=== PATIENT | female | born 1965 | race Caucasian/White ===

== ENCOUNTER 2018-12-23 17:01 | Observation (INO) | payer OTHER ==
[2018-12-23] MEDS ORDERED: ONDANSETRON 4 MG/2 ML VIAL IVP ONE (17:36)
[2018-12-23] MEDS ORDERED: KETOROLAC 30 MG/1 ML SDV IVP ONE (17:36)
--- NOTE | 2018-12-23 17:37 | EDPHY ---
HPI/HX/ROS/PE/MDM Narrative: CHIEF COMPLAINT: HPI: This patient is a 53 year old female who is generally healthy, past medical history includes several surgical procedures (see PMH below). She arrives today with her complaining of abdominal pain. Yesterday morning, she had several episodes of severe diarrhea with associated lower abdominal cramping which progressed throughout day. Around 5pm, the discomfort moved towards her right side. Today, she is quite tender in the RLQ, rates the severity of her pain at 6/10. She endorses lack of appetite. Her last PO intake was this morning around 10am. She endorses some mild dysuria. No fever, chest pain, difficulty breathing, or other associated symptoms. REVIEW OF SYSTEMS: A comprehensive 10 system review of systems is otherwise negative aside from elements mentioned in the history of present illness and medical decision making. PMH: . Hysterectomy. Oophorectomy. Pectus excavatum with surgical interventions 6-7 years ago. SOCIAL HISTORY: Friend at bedside. Employed. Does not abuse tobacco, drugs, or alcohol . PHYSICAL EXAM: General:Patient is alert, in no acute distress. ENT:Eyes are normal to inspection. ENT inspection normal. Neck: Normal inspection. Full range of motion. Respiratory:No respiratory distress. Breath sounds normal bilaterally. Cardiovascular: Regular rate and rhythm. Strong peripheral pulses. Normal cap refill. Abdomen: Severe RLQ tenderness over McBurney's point. Back: Normal to inspection. No tenderness to palpation. Skin: Normal color. No rash. Warm and dry. Extremities: Normal appearance. Full range of motion. Neuro: Oriented x3. Normal motor function. Normal sensory function. ED Course: 53 y/o female presents with severe right lower quadrant tenderness over McBurney 's point with associated nausea and lack of appetite. Patient declines narcotic pain medications. She is amenable to Toradol. Plan to administer 30mg IV Toradol , 4mg IV Zofran, and 1L IV NS for symptom relief. Plan for labs including CBC, chemistries, UA. Discussed imaging studies including US vs CT abdomen/pelvis. Patient would like to proceed with CT to rule out acute processes including appendicitis, diverticulitis, kidney stone. The patient has an allergy to iodine as well as shellfish. She notes she has had IV contrast in the past with pre-medication. Reviewed laboratory studies. WBC elevated at 10,000. 18:[address] Gonzalez, general surgeon. He will consult. 18:[address] Gallo, radiologist. CT abdomen without contrast is negative for appendicitis. A CT with contrast is more specific for appendicitis , but patient has iodine allergy and we chose to forgo this test. Clinically, the patient remains very suspicious for appendicitis. Dr. Gonzalez to discuss options for treatment including observation vs. surgical intervention. 19:29 Reassessed patient. She prefers to go to the OR for appendectomy. Plan to administer 500mg IV Flagyl and 1g IV Rocephin. Dr. Gonzalez accepts admission for perioperative management. - Data Points Imaging Results: Imaging Impressions Abdomen/Pelvis CT 12/23/18 17:39 Impression: 1. Constipation. 2. No evidence of appendicitis, bowel obstruction, or diverticulitis. 3. No nephrolithiasis or hydronephrosis. Attention: This CT examination is specifically designed to evaluate patients who are clinically suspected of having acute obstructive uropathy. This examination does not use radiographic contrast, and as such, provides only a limited evaluation of the abdomen, pelvis and retroperitoneum. If there is further clinical suspicion for pathological conditions other than obstructive uropathy, a complete CT evaluation of the abdomen and pelvis utilizing intravenous, oral, and rectal contrast should be considered. Findings and recommendations discussed with Emergency Department physician, Phillip Morrow MD at 18:15hour, 12/23/2018. Final report concurs with initial preliminary interpretation. Imaging: Discussed imaging studies w/ call center manager Radiologist Laboratory Results: Laboratory Results 12/23/18 17:25 12/23/18 17:25 12/23/18 12/23/18 12/23/18 17:25 17:25 17:15 WBC 10.25 10^3/uL H 10^3/uL (3.80-9.50) RBC 4.52 10^6/uL 10^6/uL (4.18-5.33) Hgb 13.8 g/dL g/dL (12.6-16.3) Hct 42.3 % % (38.0-47.0) MCV 93.6 fL fL (81.5-99.8) MCH 30.5 pg pg (27.9-34.1) MCHC 32.6 g/dL g/dL (32.4-36.7) RDW 14.0 % % (11.5-15.2) Plt Count 239 10^3/uL 10^3/uL (150-400) MPV 9.8 fL fL (8.7-11.7) Neut % (Auto) 76.2 % H % (39.3-74.2) Lymph % (Auto) 14.2 % L % (15.0-45.0) [place] % (Auto) 7.9 % % (4.5-13.0) Eos % (Auto) 0.9 % % (0.6-7.6) Baso % (Auto) 0.5 % % (0.3-1.7) Nucleat RBC Rel Count 0.0 % % (0.0-0.2) Absolute Neuts (auto) 7.81 10^3/uL H 10^3/uL (1.70-6.50) Absolute Lymphs (auto) 1.46 10^3/uL 10^3/uL (1.00-3.00) Absolute Monos (auto) 0.81 10^3/uL H 10^3/uL (0.30-0.80) Absolute Eos (auto) 0.09 10^3/uL 10^3/uL (0.03-0.40) Absolute Basos (auto) 0.05 10^3/uL 10^3/uL (0.02-0.10) Absolute Nucleated RBC 0.00 10^3/uL 10^3/uL (0-0.01) Immature Gran % 0.3 % % (0.0-1.1) Immature Gran # 0.03 10^3/uL 10^3/uL (0.00-0.10) Sodium 138 mEq/L mEq/L (135-145) Potassium 3.6 mEq/L mEq/L (3.5-5.2) Chloride 102 mEq/L mEq/L (97-110) Carbon Dioxide 26 mEq/l mEq/l (22-31) Anion Gap 10 mEq/L mEq/L (6-14) BUN 13 mg/dL mg/dL (7-23) Creatinine 0.7 mg/dL mg/dL (0.6-1.0) Estimated GFR > 60 Glucose 96 mg/dL mg/dL (70-100) Calcium 9.3 mg/dL mg/dL (8.5-10.4) Urine Color PALE YELLOW Urine Appearance HAZY Urine pH 6.0 (5.0-7.5) Ur Specific [place] 1.006 (1.002-1.030) Urine Protein NEGATIVE (NEGATIVE) Urine Ketones NEGATIVE (NEGATIVE) Urine Blood 2+ H (NEGATIVE) Urine Nitrate NEGATIVE (NEGATIVE) Urine Bilirubin NEGATIVE (NEGATIVE) Urine Urobilinogen NEGATIVE EU EU (0.2-1.0) Ur Leukocyte Esterase 2+ H (NEGATIVE) Urine RBC 1-3 /hpf /hpf (0-3) Urine WBC 25-50 /hpf H /hpf (0-3) Ur Epithelial Cells TRACE /lpf /lpf (NONE-1+) Urine Bacteria 1+ /hpf H /hpf (NONE SEEN) Urine Mucus TRACE /lpf /lpf (NONE-1+) Urine Glucose NEGATIVE (NEGATIVE) Medications Given: Metronidazole/Sodium Chloride (Flagyl 500 Mg (Premix)) 100 mls @ 100 mls/hr IV EDNOW ONE PRN Reason: Protocol Stop: 12/23/18 20:13 Last Admin: 12/23/18 19:18 Dose: 100 mls Discontinued Medications Sodium Chloride (Ns) 1,000 mls @ 0 mls/hr IV ONCE ONE; Wide Open PRN Reason: Protocol Stop: 12/23/18 17:39 Last Admin: 12/23/18 17:42 Dose: 1,000 mls Ceftriaxone Sodium/Dextrose (Rocephin 1 Gm (Premix)) 50 mls @ 100 mls/hr IV EDNOW ONE PRN Reason: Protocol Stop: 12/23/18 19:43 Last Admin: 12/23/18 19:18 Dose: 50 mls Ketorolac Tromethamine (Toradol) 30 mg IVP EDNOW ONE Stop: 12/23/18 17:37 Last Admin: 12/23/18 17:43 Dose: 30 mg Ondansetron HCl (Zofran) 4 mg IVP EDNOW ONE Stop: 12/23/18 17:37 Last Admin: 12/23/18 17:45 Dose: 4 mg General Time Seen by Provider: 12/23/18 17:14 Initial Vital Signs: Initial Vital Signs Temperature (C) 36.9 C 12/23/18 17:06 Heart Rate 86 12/23/18 17:06 Respiratory Rate 18 12/23/18 17:06 Blood Pressure 143/77 H 12/23/18 17:06 O2 Sat (%) 96 12/23/18 17:06 O2 Delivery Mode Room Air Allergies/Adverse Reactions: adhesive tape Allergy (Verified 12/23/18 17:09) iodine Allergy (Verified 12/23/18 17:09) Home Medications: Medication Instructions Recorded Esomeprazole Magnesium 40 mg PO HS 12/23/18 Estradiol [Vivelle-Dot 0.05MG (*)] 0.05 mg TD FR 12/23/18 Sertraline HCl [Zoloft 50mg (*)] 25 mg PO HS 12/23/18 Simethicone [Mylicon Drops (*)] 40 mg PO Q4HRS PRN 12/23/18 valACYclovir [Valtrex (*)] 500 mg PO DAILY PRN 12/23/18 Departure - Departure Disposition: [facility] Acute Clinical Impression: Acute appendicitis Qualifiers: Acute appendicitis type: other Qualified Code(s): K35.890 - Other acute appendicitis without perforation or gangrene Condition: Fair Report Scribed for: Phillip Morrow Report Scribed by: Johanny Sabillon Date of Report: 12/23/18 Time of Report: 19:48 Physician Review and Approval Statement: Portions of this note were transcribed by an ED scribe. I personally performed the history, physical exam, and medical decision making; and confirm the accuracy of the information in the transcribed note.
[2018-12-23] MEDS ORDERED: NS 1,000 ML IV ONE (17:38)
[2018-12-23 17:40] LABS: PLATELET COUNT 239 10^3/uL (150-400)
--- NOTE | 2018-12-23 19:24 | PDCONSULT ---
Contracting Support Specialist Note: CC: RLQ abdominal pain 53 yo with epigastric pain localizing to RLQ. Associated diarrhea. No vomiting. WBC 10.25 with left shift. Non contrast CT negative for acute appendicitis. 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, bilateral breast augmentation, hysterectomy, laparoscopy Family history noncontributory Social history occasional alcohol denies illicit drug use gainfully employed electrical tech/project manager for [employer] Allergies iodine and adhesive tape Medications: Estradiol and Nexium Review of systems; Negative except for abdominal pain and diarrhea All others reviewed Temp Pulse Resp BP Pulse Ox 36.9 C 86 18 143/77 H 96 12/23/18 17:06 12/23/18 17:06 12/23/18 17:06 12/23/18 17:06 12/23/18 17:06 alert oriented minimal distress holding right lower quadrant Sclera anicteric Oropharynx moist Regular rate and rhythm Clear to auscultation bilaterally Abdomen soft tender at McBurney's point positive psoas sign. Mild right CVA tenderness well healed scars periumbilically Extremities without edema. Good range of motion Skin normal turgor and tone Normal affect Nonfocal neurologic exam 12/23/18 17:25 12/23/18 17:25 Imaging Impressions Abdomen/Pelvis CT 12/23/18 17:39 Impression: 1. Constipation. 2. No evidence of appendicitis, bowel obstruction, or diverticulitis. 3. No nephrolithiasis or hydronephrosis. Attention: This CT examination is specifically designed to evaluate patients who are clinically suspected of having acute obstructive uropathy. This examination does not use radiographic contrast, and as such, provides only a limited evaluation of the abdomen, pelvis and retroperitoneum. If there is further clinical suspicion for pathological conditions other than obstructive uropathy, a complete CT evaluation of the abdomen and pelvis utilizing intravenous, oral, and rectal contrast should be considered. Findings and recommendations discussed with Emergency Department physician, Phillip Morrow MD at 18:15hour, 12/23/2018. Final report concurs with initial preliminary interpretation. personally reviewed imaging with on-call radiologist and on PACS with patient Impression/plan Cannot rule out early appendicitis. Possible UTI/pyelonephritis. CT scan does not show any obstructive uropathy. Risks benefits and alternatives to laparoscopy with appendectomy have been outlined with the patient. The risks include but are not limited to bleeding, infection, injury to other structures that could require further intervention. She also may not have appendicitis in which case her symptoms will not be fully addressed. ceftriaxone and Flagyl for antibiotic coverage to start in the emergency room All questions addressed.
[2018-12-23] MEDS ORDERED: BUPIVACAINE 0.5% 30 ML SDV ONE (19:43)
[2018-12-23] MEDS ORDERED: LIDOCAINE 1% 5 ML SDV ONE (19:45)
[2018-12-23] MEDS ORDERED: MIDAZOLAM 2 MG/2 ML VIAL IVP ONE (20:11)
--- NOTE | 2018-12-23 20:13 | PDANEPAE ---
ANE History of Present Illness lap appy ANE Past Medical History - Cardiovascular History Hx Hypertension: No Hx Arrhythmias: No Hx Chest Pain: No Hx Coronary Artery / Peripheral Vascular Disease: No Hx CHF / Valvular Disease: No Hx Palpitations: No - Pulmonary History Hx COPD: No Hx Asthma/Reactive Airway Disease: No Hx Recent Upper Respiratory Infection: No Hx Oxygen in Use at Home: No Hx Sleep Apnea: No - Neurologic History Hx Cerebrovascular Accident: No Hx Seizures: No Hx Dementia: No - Endocrine History Hx Diabetes: No Hypothyroid: No Hyperthyroid: No Obesity: no - Renal History Hx Renal Disorders: No - Liver History Hx Hepatic Disorders: No - GI History GERD: mild Gastrointestinal History Comment: symptom controlled ANE Review of Systems Review of Systems: - Exercise capacity Exercise capacity: >=4 METS ANE Patient History - Allergies Allergies/Adverse Reactions: adhesive tape Allergy (Verified 12/23/18 17:09) iodine Allergy (Verified 12/23/18 17:09) - Home Medications Home Medications: Esomeprazole Magnesium 40 mg PO HS 12/23/18 [Last Taken 12/22/18] Estradiol [Vivelle-Dot 0.05MG (*)] 0.05 mg TD FR 12/23/18 [Last Taken 12/20/18] Sertraline HCl [Zoloft 50mg (*)] 25 mg PO HS 12/23/18 [Last Taken 12/22/18] Simethicone [Mylicon Drops (*)] 40 mg PO Q4HRS PRN 12/23/18 [Last Taken 12/23/18 ] valACYclovir [Valtrex (*)] 500 mg PO DAILY PRN 12/23/18 [Last Taken Unknown] - NPO status NPO Status: no food or drink >8 hours NPO Since - Liquids (Date): 12/23/18 NPO Since - Liquids (Time): 10:30 NPO Since - Solids (Date): 12/23/18 NPO Since - Solids (Time): 15:00 - Anes Hx Anes Hx: no prior problems - Smoking Hx Smoking Status: Never smoked ANE Labs/Vital Signs - Labs Result Diagrams: 12/23/18 17:25 12/23/18 17:25 - Vital Signs Blood Pressure: 133/71 Heart Rate: 69 Respiratory Rate: 18 O2 Sat (%): 99 Height: 172.72 cm Weight: 58.967 kg ANE Physical Exam - Airway Mallampati Score: Class 2 Mouth exam: normal dental/mouth exam - Pulmonary Pulmonary: no respiratory distress - Cardiovascular Cardiovascular: regular rate and rhythym - ASA Status ASA Status: II ANE Anesthesia Plan Anesthesia Plan: general endotracheal anesthesia
[2018-12-23] MEDS ORDERED: MIDAZOLAM 2 MG/2 ML VIAL ONE (20:38)
[2018-12-23] MEDS ORDERED: ROCURONIUM 50 MG/5 ML VIAL ONE (20:42)
[2018-12-23] MEDS ORDERED: SUCCINYLCHOLINE CHLORIDE 200 MG/10 ML SYR IVP ONE (20:42)
[2018-12-23] MEDS ORDERED: fentaNYL 100 MCG/2 ML INJ ONE (20:42)
[2018-12-23] MEDS ORDERED: PROPOFOL 200 MG/20 ML VIAL ONE (20:42)
[2018-12-23] MEDS ORDERED: LIDOCAINE 2% 5 ML SDV ONE (20:43)
[2018-12-23] MEDS ORDERED: KETOROLAC 30 MG/1 ML SDV ONE (20:43)
[2018-12-23] MEDS ORDERED: ONDANSETRON 4 MG/2 ML VIAL ONE (20:43)
[2018-12-23] MEDS ORDERED: DEXAMETHASONE 4 MG/ML VIAL ONE (20:43)
[2018-12-23] MEDS ORDERED: TEMAZEPAM 15 MG CAP PO PRN (20:55)
[2018-12-23] MEDS ORDERED: ONDANSETRON 4 MG/2 ML VIAL IVP PRN ×2 (20:55→21:36)
[2018-12-23] MEDS ORDERED: HYDROCODONE/APAP 5/325 TAB PO PRN (20:55)
[2018-12-23] MEDS ORDERED: LR 1,000 ML IV SCH (21:00)
--- NOTE | 2018-12-23 21:02 | POSTOPPROG ---
Post Op Note Date of Operation: 12/23/18 Surgeon: Delmar Gonzalez Technical Applications Specialist: none Anesthesiologist: Dr. Sinclair Anesthesia: GET(General Endotracheal) Pre-op Diagnosis: Right lower quadrant abdominal pain Post-op Diagnosis: Same Procedure: Diagnostic laparoscopy, appendectomy Findings: Slightly dilated appendix Inf/Abcess present in the surg proc area at time of surgery?: Yes Depth: Organ Space EBL: Minimal Specimen(s): Appendix permanent pathology
[2018-12-23] MEDS ORDERED: SUGAMMADEX SODIUM 200 MG/2 ML VIAL IVP ONE (21:19)
[2018-12-23] MEDS ORDERED: HYDROmorphONE/DILAUDID 1 MG/ML INJ IVP PRN (21:36)
[2018-12-23] MEDS ORDERED: NALOXONE HCL 0.4 MG/ML INJ IVP PRN (21:36)
[2018-12-23] MEDS ORDERED: ALBUTEROL 3 ML DEYVIAL IH PRN (21:36)
[2018-12-23] MEDS ORDERED: LR 500 ML IV PRN (21:36)
[2018-12-23] MEDS ORDERED: fentaNYL 100 MCG/2 ML INJ IVP PRN (21:36)
--- NOTE | 2018-12-23 21:37 | POSTANESTH ---
Post Anesthetic Evaluation Cardiovascular Status: Normal, Stable Respiratory Status: Normal, Stable Level of Consciousness/Mental Status: Can Participate in Eval Pain Control: Adequate, Prn Tx Ordered Nausea/Vomiting Control: Adequate, Prn Tx Ordered Complications Possibly Related to Anesthesia: None Noted
--- NOTE | 2018-12-23 22:03 | GOP ---
[f rep st] OPERATIVE REPORT DATE OF OPERATION: SURGEON: Delmar Gonzalez MD ROCKET MOTOR TESTER: None. ANESTHESIA: General endotracheal anesthesia. ANESTHESIOLOGIST: Real Sinclair MD. PREOPERATIVE DIAGNOSIS: Right lower quadrant abdominal pain. POSTOPERATIVE DIAGNOSIS: Acute appendicitis. PROCEDURE PERFORMED: Laparoscopic appendectomy. FINDINGS: SPECIMENS: Appendix to Pathology. ESTIMATED BLOOD LOSS: 5 mL. INDICATIONS: This is a 53-year-old patient who presents with right lower quadrant abdominal pain, le ukocytosis, clinical exam consistent with appendicitis, CT scan noncontrast equivocal. DESCRIPTION OF PROCEDURE: Patient was brought to the operating room. After induction of endotrachea l anesthesia in supine position, her abdomen was prepped with chlorhexidine and draped sterilely. Ti me-out procedure was performed according to institutional standards. Local anesthetic was infused in skin and subcutaneous tissues of the trocar sites, and open supraumbilical trocar placement was done in the standard fashion. There was some scar tissue at the umbilicus, but it was easily divided to gain access. The abdomen was insufflated to 15 TOR with carbon dioxide. Working trocars were placed into the lower midline under direct visualization. The abdomen was inspected. Meter And Service Line Inspector photo graphs were taken. The appendix was slightly dilated in the right lower quadrant. Appendectomy was performed by controlling the mesentery with bipolar energy and dividing the appendix flush with the b ase of the cecum using Endo-SILVIA stapler. There was some free fluid in the abdomen which was clear. This was aspirated. The bowel was run. There was no Meckel's diverticulum, no creeping fat, no sign s of Crohn disease. Gallbladder appeared normal. There was stool within the colon, but it was not d ilated. There were no diverticula. After completing the inspection, the abdomen was exited. Needle , instrument, and sponge counts were verified to be correct. The working trocars were removed. The abdomen was deflated. 0 Vicryl was used to reapproximate the fascia, and all ports were closed at th e skin level using 4-0 Monocryl. Dermabond was applied. Patient was awakened, extubated, and taken to the recovery room in stable condition. No immediate complications. /[id number]/MODL
[2018-12-23] MEDS: KETOROLAC 15 MG/1 ML SDV IVP SCH (23:20)
[2018-12-24] MEDS: KETOROLAC 15 MG/1 ML SDV IVP SCH (05:27)
[2018-12-24 08:08] VITALS: BP 98/52
--- NOTE | 2018-12-26 11:01 | PDDCSUM ---
Discharge Summary Discharge Summary: Date of admission: 12/23/2018 Date of discharge: 12/16/2018 Principal diagnosis: acute appendicitis History of present illness This is a 53-year-old patient who presented with abdominal discomfort localizing to the right lower quadrant associated with diarrhea. Peritoneal signs and elevated white blood cell count indicate appendicitis. CT scan was equivocal Hospital course: Patient was brought to the hospital for evaluation underwent urgent appendectomy. Postoperatively she felt very well. Her abdominal pain and resolved is with diarrhea. She had no additional constitutional symptoms of ongoing infection. She had received 1 dose of ceftriaxone and Flagyl preoperatively. [facility] Follow-up in 1 week for wound evaluation. Refrain from lifting greater than 25 lb. Call with any concerns regarding hospice physician for surgery. Discharge medications include: Medications on discharge Esomeprazole Magnesium 40 mg PO HS 12/23/18 [Last Taken 12/22/18] Estradiol [Vivelle-Dot 0.05MG (*)] 0.05 mg TD FR 12/23/18 [Last Taken 12/20/18] Hydrocodone/APAP 5/325 [[place] 5/325 (*)] 1 - 2 tab PO Q4HRS PRN #20 tab [Last Taken Unknown] Sertraline HCl [Zoloft 50mg (*)] 25 mg PO HS 12/23/18 [Last Taken 12/22/18] Simethicone [Mylicon Drops (*)] 40 mg PO Q4HRS PRN 12/23/18 [Last Taken 12/23/18 ] valACYclovir [Valtrex (*)] 500 mg PO DAILY PRN 12/23/18 [Last Taken Unknown] Instructions: Appendicitis (GEN) Prescriptions: Hydrocodone/APAP 5/325 [[place] 5/325 (*)] Delmar Gonzalez
== END 2018-12-24 10:40 | disposition home or self-care (01) ==
LOC: F1N 22:25
PROVIDERS: ADMIT Surgery; ATTEND Surgery
PROC: 0DTJ4ZZ Resection of Appendix, Percutaneous Endoscopic Approach (ICD-10-PCS; principal; 2018-12-23 20:00)
DX: K35.890 Other acute appendicitis without perforation or gangrene (principal); K57.10 Diverticulosis of small intestine without perforation or abscess without bleeding; E86.9 Volume depletion, unspecified
CPT/HCPCS: 44970; 74176; 96361; 96374; 96375; 99285; G0378; J0330; J0696; J1100; J1885; J2250; J2405; J2704; J3010